=== PATIENT | male | born 1965 | race Caucasian/White ===

== ENCOUNTER 2020-01-31 05:36 | Day surgery (SDC) | payer OTHER | END 2020-01-31 10:15 | disposition home or self-care (01) | LOC: CIR.AMB 05:36 | PROVIDERS: ATTEND Surgery Surgery of the Hand | DX: M65.331 Trigger finger, right middle finger (principal); M65.841 Other synovitis and tenosynovitis, right hand; Z20.828 Contact with and (suspected) exposure to other viral communicable diseases ==